=== PATIENT | male | born 1990 ===

== ENCOUNTER 2021-01-13 13:00 | Emergency (ER) | payer SELFPAY ==
--- NOTE | 2021-01-13 13:26 | Emergency Department Report ---
ED General Adult HPI - General Chief complaint: Medical Clearance Stated complaint: MOUTH WATERING AND TWITCHING Time Seen by Provider: 01/13/21 13:13 Source: EMS Mode of arrival: Wheelchair Limitations: No Limitations - History of Present Illness Initial comments: Patient presents by ambulance secondary to drooling and mouth twitching. Last night, he took Unisom for the first time. He started drooling. His mouth was twitching and moving. He called an ambulance this morning because of the symptoms. He did not take other medication. He has no fevers or chills per there is no cough congestion. He has no sore throat. There has been no vomiting or diarrhea. He is not suicidal. This is not an intentional overdose. He states that he just wanted to get some sleep so he took 2 Unisom. ED Review of Systems ROS: Stated complaint: MOUTH WATERING AND TWITCHING Other details as noted in HPI Comment: All other systems reviewed and negative Constitutional: denies: fever Eyes: denies: vision change ENT: denies: throat pain Respiratory: denies: cough Cardiovascular: denies: chest pain Endocrine: denies: unexplained weight loss Gastrointestinal: diarrhea ( Last night). denies: abdominal pain Genitourinary: denies: dysuria Musculoskeletal: denies: back pain Skin: denies: rash Neurological: denies: headache Hematological/Lymphatic: denies: easy bruising ED Past Medical Hx - Past Medical History Hx Psychiatric Treatment: Yes ( schizophrenia) - Family History Family history: no significant ED Physical Exam - General Limitations: No Limitations, Other ( pulse ox noted and normal by EMS) General appearance: alert, in no apparent distress - Head Head exam: Present: atraumatic, normocephalic, normal inspection - Eye Eye exam: Present: normal appearance, EOMI. Absent: scleral icterus - ENT ENT exam: Present: normal exam, normal orophraynx, other (. He is not tripoding. There is no hot potato voice or change in phonation.) - Neck Neck exam: Present: normal inspection. Absent: meningismus - Respiratory Respiratory exam: Present: normal lung sounds bilaterally. Absent: respiratory distress - Cardiovascular Cardiovascular Exam: Present: regular rate, normal rhythm - GI/Abdominal GI/Abdominal exam: Present: soft. Absent: tenderness - Extremities Exam Extremities exam: Present: normal capillary refill - Back Exam Back exam: Absent: CVA tenderness (R), CVA tenderness (L) - Neurological Exam Neurological exam: Present: alert, oriented X3, CN II-XII intact, normal gait. Absent: motor sensory deficit - Psychiatric Psychiatric exam: Present: normal affect, normal mood - Skin Skin exam: Present: warm, dry ED Course Vital Signs 01/13/21 13:28 Temperature 99.0 F Pulse Rate 87 Respiratory 18 Rate Blood Pressure 148/99 [Left] O2 Sat by Pulse 97 Oximetry - Reevaluation(s) Reevaluation #1: 01/13/21 13:26 EMS was met upon arrival. Patient was discharged ED Medical Decision Making - Medical Decision Making patient presented by EMS secondary to drooling after taking Unisom. I do believe this would be consistent with an adverse drug reaction. He was not suicidal. This is not an intentional overdose. Patient does not have other features or symptoms that would suggest epiglottitis or retropharyngeal abscess. He is able to handle his own secretions. He will swallow intermittently and drool intermittently. He certainly does not have evidence of any type of pharyngitis or airway compromise. He has no stridor. We have discussed avoiding Benadryl and Unisom altogether. Critical Care Time: No Critical care attestation.: If time is entered above; I have spent that time in minutes in the direct care of this critically ill patient, excluding procedure time. ED Disposition Clinical Impression: Adverse drug reaction Qualifiers: Encounter type: initial encounter Qualified Code(s): T50.905A - Adverse effect of unspecified drugs, medicaments and biological substances, initial encounter Disposition: 01 HOME / SELF CARE / HOMELESS Is pt being admited?: No Condition: Stable Additional Instructions: Do not take Unisom or Benadryl. Drink fluids. Continue your home medication. Return for problems. Follow-up with your regular doctor for recheck. Referrals: PRIMARY MD CARLYLE [Primary Care Provider] - 3-5 Days ANALILIA WEEKS MD [Staff Physician] - 3-5 Days
[2021-01-13 13:29] VITALS: BP 148/99
== END 2021-01-13 16:41 | disposition home or self-care (01) ==
LOC: ED 13:00
DX: K14.8 Other diseases of tongue (principal); T50.905A Adverse effect of unspecified drugs, medicaments and biological substances, initial encounter; X58.XXXA Exposure to other specified factors, initial encounter; Y93.89 Activity, other specified; Y92.89 Other specified places as the place of occurrence of the external cause; Y99.8 Other external cause status
CPT/HCPCS: 99283